=== PATIENT | male | born 1970 | race Caucasian/White ===

== ENCOUNTER 2017-03-30 22:24 | Emergency (ER) | payer OTHER ==
[~2017-03-30] VITALS: Ht 188 cm; Wt 158.8 kg
[2017-03-30 22:34] VITALS: BP 123/79
--- NOTE | 2017-03-30 23:12 | NUR ---
PATIENT AMBULATED TO ER OF3.
--- NOTE | 2017-03-30 23:28 | NUR ---
46Y/M PT. PRESENTS TO ED WITH C/O LT. WRIST AND ANKLE PAIN X 1 MONTH. PT. STATES PAIN CONSTANT X 1 MONTH, S/P FALL LANDED ON LT. SIDE. AAO X4, AMBULATORY WITH STEADY GAIT. C/O PAIN 5/10. VSS, NO S/SX OF DISTRESS AT THIS TIME. ER MD MADE AWARE OF PT. STATUS.
--- NOTE | 2017-03-30 23:31 | NUR ---
PATIENT BEING EVALUATD BY DR. CHO.
[2017-03-31 01:12] VITALS: BP 114/67
== END 2017-03-31 01:12 | disposition home or self-care (01) ==
LOC: MED 22:24
DX: S93.402A Sprain of unspecified ligament of left ankle, initial encounter (principal); S60.212A Contusion of left wrist, initial encounter; F17.210 Nicotine dependence, cigarettes, uncomplicated; F12.90 Cannabis use, unspecified, uncomplicated; W19.XXXA Unspecified fall, initial encounter; Y93.89 Activity, other specified; Y92.89 Other specified places as the place of occurrence of the external cause; Y99.8 Other external cause status
CPT/HCPCS: 73110; 73610; 99284

== ENCOUNTER 2018-04-02 09:32 | Emergency (ER) | payer OTHER ==
[~2018-04-02] VITALS: Ht 188 cm; Wt 179.2 kg
[~2018-04-02 09:32] MED LIST: ALBU-118 IH
[2018-04-02 09:35] VITALS: BP 131/88
--- NOTE | 2018-04-02 09:38 | NUR ---
PT AMBULATED TO BED 10
[2018-04-02] MEDS ORDERED: ALBUTEROL SULFATE/IPRATROPIU 3 ML SOL IH ONE ×2 (09:40→10:30)
[2018-04-02] MEDS ORDERED: methylPREDNISolone SS 125 MG/2 ML VIAL IM ONE (09:40)
--- NOTE | 2018-04-02 09:50 | NUR ---
PT. CAME INTO ED W/ C/O SOB FOR 2 WEEKS. PT. STATES " I HAVE BEEN HAVING SOB FOR TWO WEEKS I HAVE ALBUTEROL AND HAVE USED IT BUT DOES NOT SEEM TO HELP, I FINALLY DECIDED TO COME IN BECAUSE IT HAS BEEN GETTING WORSE". PT. DENIES N/V/D. PT. DOES COMPLAIN OF SOB X 2 WEEKS. LS: BILATERAL ALL THROUGHOUT WHEEZES. PT. STATES HE HAS A NON PRODUCTIVE COUGH X 2 WEEKS. DENIES CHEST PAIN. PT. IS AAOX4 . SYMETRICAL CHEST RISE. FAMILY MEMEBER AT BEDSIDE. WILL CONTINUE TO MONITOR.
--- NOTE | 2018-04-02 11:04 | NUR ---
PT. RESTING IN BED COMFORTABLY W/ AT BEDSIDE, RR EVEN AND UNLABORED, AAOX4. WILL CONTINUE TO MONITOR.
[2018-04-02 11:25] VITALS: BP 128/72
--- NOTE | 2018-04-02 11:25 | NUR ---
Patient discharged with v/s stable. Written and verbal after care instructions given and explained. Patient alert, oriented and verbalized understanding of instructions. Ambulatory with steady gait. All questions addressed prior to discharge. ID band removed. Patient advised to follow up with PMD. Rx of LEVAQUIN, PREDNISONE, ALBUTEROL given. Patient educated on indication of medication including possible reaction and side effects. Opportunity to ask questions provided and answered.
== END 2018-04-02 11:25 | disposition home or self-care (01) ==
LOC: MED 09:32
DX: J44.1 Chronic obstructive pulmonary disease with (acute) exacerbation (principal); S63.502A Unspecified sprain of left wrist, initial encounter; J45.909 Unspecified asthma, uncomplicated; F17.210 Nicotine dependence, cigarettes, uncomplicated; Z71.6 Tobacco abuse counseling; W18.39XA Other fall on same level, initial encounter; Y93.89 Activity, other specified; Y92.89 Other specified places as the place of occurrence of the external cause; Y99.8 Other external cause status
CPT/HCPCS: 71045; 73110; 94640; 94760; 99284; J2930; J7620; Q0092

== ENCOUNTER 2018-04-12 00:12 | Emergency (ER) | payer OTHER ==
[~2018-04-12] VITALS: Ht 188 cm; Wt 178.3 kg
[2018-04-12 00:14] VITALS: BP 139/86
--- NOTE | 2018-04-12 00:21 | NUR ---
PT TAKEN TO BED 1
--- NOTE | 2018-04-12 00:33 | NUR ---
47 YO M TO ER WITH C/O LEFT WRIST PAIN X1DAY AND RIGHT CALF PAIN X4DAYS. PT STATES HEARD A POP WITH PAIN IN RIGHT CALF WHILE PUSHING A VAN X4DAYS AGO. PT STATES HE SLIPED AND REINJURED HIS CALF AND WRIST THIS EVENING. SWELLING NOTED TO THE RIGHT CALF WITH TIGHT SKIN. FULL ROM, +PEDAL PULSES AND RADIAL PULSES, <3SEC CAP REFILL IN ALL EXTREMITIES . DENIES N/V/D; SKIN IS PINK/WARM/DRY; AAOX4 ; LUNGS CLEAR BL; HR EVEN AND REGULAR; PT DENIES ANY FEVER, CP, SOB, OR COUGH AT THIS TIME; PATIENT STATES PAIN OF 10/10 AT THIS TIME; VSS; PATIENT POSITIONED FOR COMFORT; HOB ELEVATED; BEDRAILS UP X2; BED DOWN. ER MD MADE AWARE OF PT STATUS.
[2018-04-12] MEDS ORDERED: HYDROcodone/APAP 10/325 MG 1 TAB TAB PO STA (00:44)
[2018-04-12] MEDS ORDERED: KETOROLAC 60 MG/2 ML VIAL IM ONE (00:45)
--- NOTE | 2018-04-12 01:44 | NUR ---
Dr. Patten evaluating patient at bedside.
--- NOTE | 2018-04-12 01:46 | NUR ---
XRAY AT BEDSIDE
[2018-04-12 02:29] VITALS: BP 136/86
--- NOTE | 2018-04-12 02:29 | NUR ---
Patient discharged with v/s stable. Written and verbal after care instructions given and explained. Patient alert, oriented and verbalized understanding of instructions. Ambulatory with steady gait. All questions addressed prior to discharge. ID band removed. Patient advised to follow up with PMD. Rx of IBUPROFN 600MG, NORCO 5MG-325MG given. Patient educated on indication of medication including possible reaction and side effects. Opportunity to ask questions provided and answered.
== END 2018-04-12 02:29 | disposition home or self-care (01) ==
LOC: MED 00:12
DX: S86.811A Strain of other muscle(s) and tendon(s) at lower leg level, right leg, initial encounter (principal); M25.532 Pain in left wrist; E78.00 Pure hypercholesterolemia, unspecified; F17.210 Nicotine dependence, cigarettes, uncomplicated; Z79.899 Other long term (current) drug therapy; X58.XXXA Exposure to other specified factors, initial encounter; Y93.89 Activity, other specified; Y92.89 Other specified places as the place of occurrence of the external cause; Y99.8 Other external cause status
CPT/HCPCS: 29125; 73110; 73590; 73610; 96372; 99284; J1885

== ENCOUNTER 2018-12-08 00:40 | Inpatient (IN) | payer OTHER ==
[~2018-12-08] VITALS: Ht 188 cm; Wt 176.4 kg
[2018-12-08 00:46] VITALS: BP 142/84
--- NOTE | 2018-12-08 00:53 | NUR ---
Pt ambulated to bed 3 with vss.
--- NOTE | 2018-12-08 00:58 | NUR ---
PT BIB C/O EAR PAIN X3 DAYS. PT REPORTS THROBBING STABBING PAIN AT 10/10. ERYTHEMA, AND EDEMA PRESENT ON L EAR AND FACE AROUND EAR. EAR IS HARD AND TENDER TO TOUCH. PT HAS YELLOW DRAINAGE FROM BOTH SIDES OF L EAR LOBE. ER MD TO SEE PT. SAFETY PRECAUTIONS IN PLACE, WILL CONTINUE TO MONITOR. MEDHX: ASTHMA
[2018-12-08] MEDS ORDERED: NACL 0.9% 1,000 ML IV SCH (01:02)
[2018-12-08] MEDS ORDERED: VANCOMYCIN 1,000 MG in DEXTROSE 5% 250 ML IV ONE (01:05)
[2018-12-08] MEDS ORDERED: LIDOCAINE 2% 1000 MG/50 ML VIAL INJ ONE (01:20)
[2018-12-08] MEDS ORDERED: KETOROLAC 30 MG/ML VIAL IVP ONE (01:20)
[2018-12-08] MEDS ORDERED: ONDANSETRON 4 MG/2 ML VIAL IVP ONE (01:20)
[2018-12-08] MEDS ORDERED: VANCOMYCIN 1,000 MG VIAL ONE (01:21)
[2018-12-08 01:30] LABS: BASOPHILS % (AUTO) 0.3 % (0.0-2.0); EOSINOPHILS # (AUTO) 0.1 K/uL (0-0.4); EOSINOPHILS % (AUTO) 1.6 % (0.0-4.0); HEMATOCRIT 40.8 % (36-52); HEMOGLOBIN 13.3 g/dL (12.0-18.0); LYMPHOCYTES # (AUTO) 1.6 K/uL (2.0-11.5); LYMPHOCYTES % (AUTO) 16.3 % (20.5-51.1); MEAN CORPUSCULAR HEMOGLOBIN 30 pg (27-31); MEAN CORPUSCULAR HGB CONC 33 g/dL (33-37); MEAN CORPUSCULAR VOLUME 90.8 fL (80-94); MONOCYTES # (AUTO) 1.1 K/uL (0.8-1.0); MONOCYTES % (AUTO) 11.3 % (1.7-9.3); NEUTROPHILS # (AUTO) 6.7 K/uL (1.8-7.7); NEUTROPHILS % (AUTO) 70.5 % (42.2-75.2); PLATELET COUNT (AUTO) 213 K/uL (140-450); RED BLOOD CELL COUNT(AUTO) 4.49 MIL/uL (4.20-6.10); RED CELL DISTRIBUTION WIDTH 13.3 % (11.6-13.7); WHITE BLOOD COUNT (AUTO) 9.5 K/uL (4.8-10.8)
[2018-12-08 01:53] LABS: ALBUMIN 3.4 g/dL (3.4-5.0); ANION GAP 9.2 (8-16); CARBON DIOXIDE 30.4 mmol/L (21-32); CREATININE 0.8 mg/dL (0.7-1.3); POTASSIUM 3.6 mmol/L (3.5-5.1); TOTAL BILIRUBIN 0.4 mg/dL (0.0-1.0)
--- NOTE | 2018-12-08 02:42 | NUR ---
waiting for call back from insurance for admit.
--- NOTE | 2018-12-08 03:08 | NUR ---
Fabian CARSON put bandage on PT ear, PT tolerated well. Bleeding controlled with bandage.
[2018-12-08] MEDS ORDERED: ALBUTEROL SULFATE/IPRATROPIU 3 ML SOL IH ONE (03:15)
[2018-12-08 04:00] VITALS: BP 128/65
--- NOTE | 2018-12-08 04:00 | NUR ---
Patient will be admitted to care of DR CARL. Admited to MED/SURG VIA WHEELCHAIR WITH VSS. Will go to room 104A. Belongings list completed. Report to ADELINE PIÑA.
--- NOTE | 2018-12-08 04:00 | NUR ---
Note newone in EDM - 12/08/18 at 0405 by MANUEL Patient will be admitted to care of DR CARL. Admited to MED/SURG VIA GURNEY WITH VSS. Will go to room 104A. Belongings list completed. Report to ADELINE PIÑA.
--- NOTE | 2018-12-08 04:00 | NUR ---
RECEIVED REPORT FROM ER NURSE AT BEDSIDE FOR CONTINUITY OF CARE. PT AAOX4. PT IV NOTED LAC 20G SALINE LOCK. NO SOB NO S/S OF DISTRESS ON RA. BED LOWERED CALL LIGHT WITHIN REACH. WILL CONTINUE TO MONITOR.
--- NOTE | 2018-12-08 07:21 | NUR ---
ENDORSED REPORT TO DAYSHIFT NURSE AT BEDSIDE FOR CONTINUITY OF CARE.
--- NOTE | 2018-12-08 07:22 | NUR ---
RECEIVED REPORT FROM BANQUET PILOT NURSE. PT IN STABLE CONDITION. RESPIRATIONS EVEN AND UNLABORED. IV INTACT AND PATENT. SAFETY MEASURES IN PLACE. CALL LIGHT AT BEDSIDE. BED IN LOW POSITION. WILL CONTINUE TO MONITOR.
[2018-12-08 08:00] VITALS: BP 115/54
--- NOTE | 2018-12-08 08:15 | NUR ---
PATIENT HAS BEEN SCREENED AND CATEGORIZED HIGH NUTRITION RISK. PATIENT WILL BE SEEN WITHIN 1-2 DAYS OF ADMISSION. 12/08/18-12/09/[address]
--- NOTE | 2018-12-08 08:15 | NUR ---
PT ASKING FOR BREATHING TREATMENT. TORD FROM DR. CARL, ALBUTEROL NEBULIZER Q4 PRN
[2018-12-08] MEDS: ALBUTEROL 0.083% 2.5 MG/3 ML NEBU INH PRN ×2 (09:24→15:07)
[2018-12-08] MEDS: CLINDAMYCIN PHOS 600MG/D5W PM 50 ML IV SCH ×2 (13:12→21:34)
--- NOTE | 2018-12-08 15:38 | NUR ---
PT ASKING FOR BREATHING TREATMENT. TORD FROM DR. CARL, ALBUTEROL NEBULIZER Q4 PRN. Addendum: 12/08/18 at 1541 by Alysia Gillette RN ORDER AT [id number].
--- NOTE | 2018-12-08 15:41 | NUR ---
1525 PT RECEIVED BREATHING TREATMENT AT THIS TIME. PT TOLERATED WELL. WILL CONTINUE TO MONITOR.
[2018-12-08 16:00] VITALS: BP 110/72
--- NOTE | 2018-12-08 19:27 | NUR ---
GAVE REPORT TO DIRECTOR HYDROGEN STORAGE ENGINEERING NURSE. PT IN STABLE CONDITION.
--- NOTE | 2018-12-08 19:28 | NUR ---
RECD. SITTING ON BED, AWAKE, A/OX4. RESPIRATION EVEN AND UNLABORED. IV SALINE LOCK AT THE LEFT AC G20, PATENT AND INTACT. NOTED REDNESS AND SWELLING AROUND BASE OF LEFT EAR AND BELOW IT, OPEN TO AIR, NO DRAINAGE NOTED. PAIN IN THIS AREA 11/27, WILL CALL NURSE WHEN PAIN INCREASES. ON IV ANTIBIOTICS. PLAN OF CARE FOR THE SHIFT DISCUSSED. VERBALIZED UNDERSTANDING.
--- NOTE | 2018-12-08 19:30 | NUR ---
Patient's Plan of Care was discussed and reviewed with MAIL PROCESSING CLERK: GLORIA
--- NOTE | 2018-12-08 21:20 | NUR ---
CHECKED PATIENT, SLEEPING COMFORTABLY IN BED.
[2018-12-08] MEDS ORDERED: MORPHINE SULFATE 4 MG/ML SYR IVP PRN (23:55)
[2018-12-09] VITALS: BP 146/83
--- NOTE | 2018-12-09 | NUR ---
AWAKE, WATCHING TV.
[2018-12-09] MEDS: ALBUTEROL 0.083% 2.5 MG/3 ML NEBU INH PRN ×2 (00:01→08:08)
[2018-12-09] MEDS: HYDROcodone/APAP 5/325 MG 1 TAB TAB PO PRN ×2 (00:53→12:54)
--- NOTE | 2018-12-09 04:00 | NUR ---
NOT FOUND INSIDE HIS ROOM, GOWN ON THE BED. REQUESTED SECURITY TO TOOK FOR PATIENT. CHARGE NURSE MARY JO FOUND PT IN THE [place], TOLD NOT ALLOWED TO SMOKE BUT STATED "GO BACK AND DO YOUR JOB."
[2018-12-09] MEDS: CLINDAMYCIN PHOS 600MG/D5W PM 50 ML IV SCH ×2 (06:02→12:46)
--- NOTE | 2018-12-09 06:30 | NUR ---
SLEEPING COMFORTABLY IN BED, RESPIRATION EVEN AND UNLABORED.
--- NOTE | 2018-12-09 07:15 | NUR ---
ENDORSED TO AM SHIFT NURSE FOR CONTINUITY OF CARE.
--- NOTE | 2018-12-09 07:16 | NUR ---
RECEIVED REPORT FROM MEDICAL OFFICE SPECIALIST NURSE. PT IN STABLE CONDITION. RESPIRATIONS EVEN AND UNLABORED. IV INTACT AND PATENT. SAFETY MEASURES IN PLACE. CALL LIGHT AT BEDSIDE. BED IN LOW POSITION. WILL CONTINUE TO MONITOR.
[2018-12-09 08:00] VITALS: BP 135/88
[2018-12-09] MEDS ORDERED: CLIN300C2 PO (09:01)
[2018-12-09] MEDS ORDERED: ACET-9525 PO (09:01)
--- NOTE | 2018-12-09 10:20 | NUR ---
PT WEIGHED FOR CT SCAN. PT AT [phone] AT THIS TIME.
--- NOTE | 2018-12-09 10:45 | NUR ---
PT OFF UNIT FOR CT SCAN.
--- NOTE | 2018-12-09 11:05 | NUR ---
PT BACK AT UNIT FROM PT SCAN IN STABLE CONDITION. WILL CONTINUE TO MONITOR.
--- NOTE | 2018-12-09 14:09 | NUR ---
12/09/18 RD INITIAL ASSESSMENT COMPLETED PLEASE REFER TO NUTRITION ASSESSMENT UNDER CARE ACTIVITY FOR ESTIMATED NUTRITIONAL NEEDS. 1. CONTINUE REGULAR DIET TOLERATED 2. RD PROVIDED NUTRITION EDUCATION ON GENERAL HEALTHY EATING. PT ACCEPTED 3. RD TO FOLLOW-UP 5-7 DAYS, LOW RISK GWENDOLYN [address] RD
--- NOTE | 2018-12-09 14:50 | NUR ---
GAVE DISCHARGE INSTRUCTIONS AND PHARMACY PRESCRIPTION, PT VERBALIZED UNDERSTANDING OF INSTRUCTIONS. IV REMOVED, LUMEN INTACT, ID BAND REMOVED. LEFT EAR WOUND PICTURE TAKEN AT THIS TIME. PT REFUSED WHEELCHAIR. PT WALKED TO LOBBY WITH FAMILY MEMBER IN STABLE CONDITION.
== END 2018-12-09 14:50 | disposition home or self-care (01) | DRG 383 ==
LOC: MED 00:40 → MTU 03:34
PROVIDERS: ADMIT Internal Medicine; ATTEND Internal Medicine
PROC: 09910ZZ Drainage of Left External Ear, Open Approach (ICD-10-PCS; principal; 2018-12-08)
DX: L03.211 Cellulitis of face (principal); E66.01 Morbid (severe) obesity due to excess calories; E83.51 Hypocalcemia; J45.901 Unspecified asthma with (acute) exacerbation; Z68.42 Body mass index [BMI] 45.0-49.9, adult; G47.30 Sleep apnea, unspecified; R73.9 Hyperglycemia, unspecified; L02.01 Cutaneous abscess of face; F17.210 Nicotine dependence, cigarettes, uncomplicated; Z79.899 Other long term (current) drug therapy
CPT/HCPCS: 36415; 70486; 80053; 83605; 85025; 87040; 87081; 94640; 96365; 96366; 96375; 99285; J1885; J2001; J2405; J3370; J3490; J7030; J7613; J7620

== ENCOUNTER 2019-04-14 21:08 | Emergency (ER) | payer OTHER ==
[~2019-04-14] VITALS: Ht 188 cm; Wt 185.1 kg
[~2019-04-14 21:08] MED LIST changes: +ACET-9525 PO; +CLIN300C2 PO
[2019-04-14 21:11] VITALS: BP 133/55
--- NOTE | 2019-04-14 21:15 | NUR ---
PT AMBULATED TO BED #2
--- NOTE | 2019-04-14 21:20 | NUR ---
BIB SELF REPORTS SOB SINCE LAST NIGHT STATES HE DOES NOT HAVE HIS MEDICATIONS CURRENTLY SO HE COULD NOT TREAT IT AT HOME. STATES HE USUALLY USES A RESCUE INHALER AND NEBULIZER AT HOME. WHEEZING BILATERALLY, SPO2 WNL.
[2019-04-14] MEDS ORDERED: ALBUTEROL 0.083% 2.5 MG/3 ML NEBU INH ONE (21:30)
[2019-04-14] MEDS ORDERED: predniSONE 20 MG TAB PO ONE (21:30)
[2019-04-14] MEDS ORDERED: ALBUTEROL SULFATE/IPRATROPIU 3 ML SOL IH ONE (21:30)
--- NOTE | 2019-04-14 21:36 | NUR ---
Dr. Lr evaluating patient at bedside.
--- NOTE | 2019-04-14 21:39 | NUR ---
Respiratory Therapist at bedside for respiratory intervention.
[2019-04-14 22:10] VITALS: BP 135/60
--- NOTE | 2019-04-14 22:11 | NUR ---
Patient discharged with v/s stable. Written and verbal after care instructions given and explained. Patient alert, oriented and verbalized understanding of instructions. Ambulatory with steady gait. All questions addressed prior to discharge. ID band removed. Patient advised to follow up with PMD. Rx of PREDNISONE, ALBUTEROL NEB, ALBUTEROL AEROSOL given. Patient educated on indication of medication including possible reaction and side effects. Opportunity to ask questions provided and answered.
== END 2019-04-14 22:11 | disposition home or self-care (01) ==
LOC: MED 21:08
DX: J45.909 Unspecified asthma, uncomplicated (principal); Z79.899 Other long term (current) drug therapy; F17.200 Nicotine dependence, unspecified, uncomplicated
CPT/HCPCS: 94640; 94760; 99284; J7512; J7613; J7620

== ENCOUNTER 2020-08-19 13:06 | Emergency (ER) | payer OTHER ==
[~2020-08-19] VITALS: Ht 188 cm; Wt 181.4 kg
[2020-08-19 13:09] VITALS: BP 149/73
[2020-08-19 15:00] VITALS: BP 149/73
== END 2020-08-19 15:01 | disposition home or self-care (01) ==
LOC: MED 13:06
DX: S80.861A Insect bite (nonvenomous), right lower leg, initial encounter (principal); L03.115 Cellulitis of right lower limb; J45.909 Unspecified asthma, uncomplicated; Z79.899 Other long term (current) drug therapy; Z98.890 Other specified postprocedural states; W57.XXXA Bitten or stung by nonvenomous insect and other nonvenomous arthropods, initial encounter; Y93.89 Activity, other specified; Y92.89 Other specified places as the place of occurrence of the external cause; Y99.8 Other external cause status
CPT/HCPCS: 93971; 99284; Q0092